=== PATIENT | male | born 1980 | race Two or more races ===

== ENCOUNTER 2022-02-05 01:30 | Inpatient (IN) | payer MEDICAID ==
[2022-02-05] VITALS (58 sets, daily range): BP systolic 65–159; BP diastolic 40–94
[~2022-02-05] VITALS: Ht 172.7 cm; Wt 84.8 kg
--- NOTE | 2022-02-05 01:40 | NUR ---
TO ER BED 3. [id number] FROM [facility] C/O DIFFUSED ABD PAIN X 2 DAYS. HEMATURIA- S/P F/C CHANGED TODAY AND N/V. PT IS ALERT AND ORIENETED. NON AMBULATORY. RR EVEN AND NONLABORED. HEMATURIA NOTED IN [facility]. CONNECTED TO MONITOR. AWAITING MD WEBBER
[2022-02-05] MEDS ORDERED: ONDANSETRON HCL/PF 4 MG/2 ML VIAL ONE (01:51)
[2022-02-05] MEDS ORDERED: MORPHINE SULFATE INJ 2 MG/ML DISP.SYRIN ONE (01:51)
[2022-02-05] MEDS ORDERED: IV NS 0.9% 1,000 ML BAG IV ONE ×2 (02:00→03:30)
[2022-02-05] MEDS ORDERED: ONDANSETRON HCL/PF 4 MG/2 ML VIAL IVP ONE (02:00)
[2022-02-05] MEDS ORDERED: MORPHINE SULFATE INJ 2 MG/ML DISP.SYRIN IV ONE (02:00)
--- NOTE | 2022-02-05 02:31 | NUR ---
MANUAL IRRIGATION TO [facility] CATH PERFORMED. FEW BLOOD CLOTS NOTED. PT TOLERATED WELL.
--- NOTE | 2022-02-05 02:32 | NUR ---
LAB AT BEDSIDE
[2022-02-05 02:50] LABS: BASOPHILS # (AUTO) 0.1 K/uL (0.0-0.2); BASOPHILS % (AUTO) 0.1 % (0.0-2.0); HEMATOCRIT 46 % (39-51); HEMOGLOBIN 14.5 g/dL (13.5-17.5); LYMPHOCYTES # (AUTO) 1.7 K/uL (0.8-4.8); LYMPHOCYTES % (AUTO) 4.8 % (20.0-44.0); MEAN CORPUSCULAR HGB CONC 32 g/dl (31.0-36.0); MEAN CORPUSCULAR VOLUME 72 fL (80-96); MONOCYTES # (AUTO) 1.8 K/uL (0.1-1.30); MONOCYTES % (AUTO) 4.9 % (2.0-12.0); NEUTROPHILS # (AUTO) 32.5 K/uL (1.8-8.9); NEUTROPHILS % (AUTO) 90.2 % (43.0-81.0); PLATELET COUNT (AUTO) 225 K/uL (150-450); RED BLOOD CELL COUNT(AUTO) 6.38 MIL/uL (4.5-6.0)
[2022-02-05 02:52] LABS: WHITE BLOOD COUNT (AUTO) 36.1 K/uL (4.3-11.0)
--- NOTE | 2022-02-05 02:52 | NUR ---
WBC 36.1
[2022-02-05 03:01] LABS: CALCIUM, SERUM 8.5 mg/dL (8.5-10.1); CREATININE 2.6 mg/dL (0.6-1.3)
[2022-02-05 03:07] LABS: ALBUMIN 3.8 g/dL (3.4-5.0); BILIRUBIN,DIRECT 0.3 mg/dL (0.0-0.2); BILIRUBIN,TOTAL 0.8 mg/dL (0.2-1.0); TOTAL PROTEIN, SERUM 6.3 g/dL (6.4-8.2)
--- NOTE | 2022-02-05 03:20 | NUR ---
POTASSIUM 6.3
[2022-02-05 03:21] LABS: POTASSIUM 6.3 mmol/L (3.5-5.1)
[2022-02-05 03:26] LABS: BAND % (MANUAL) 4 % (0.0-5.0); BASOPHILS % (MANUAL) 0 % (0.0-2.0); EOSINOPHILS % (MANUAL) 0 % (0-4); LYMPHOCYTES % (MANUAL) 7 % (16-48); MONOCYTES % (MANUAL) 5 % (0-11.0); NEUTROPHILS % (MANUAL) 84 (42-76)
[2022-02-05] MEDS ORDERED: FUROSEMIDE 20 MG/2 ML VIAL ONE (03:28)
[2022-02-05] MEDS ORDERED: SODIUM POLYSTYRENE SULFONATE 15 G/60 ML BOTTLE ONE (03:28)
[2022-02-05] MEDS ORDERED: SODIUM BICARBONATE SYR 50 MEQ/50 ML DISP.SYRIN ONE (03:29)
[2022-02-05] MEDS ORDERED: DEXTROSE 50%-WATER 50 ML DISP.SYRIN ONE (03:29)
[2022-02-05] MEDS ORDERED: INSULIN REGULAR, HUMAN 100 UNIT/ML 10 ML VIAL ONE (03:29)
[2022-02-05] MEDS ORDERED: CALCIUM CHLORIDE 1,000 MG/10 ML DISP.SYRIN ONE (03:29)
[2022-02-05] MEDS ORDERED: CALCIUM CHLORIDE 1,000 MG/10 ML DISP.SYRIN IV ONE (03:30)
[2022-02-05] MEDS ORDERED: DEXTROSE 50%-WATER 50 ML DISP.SYRIN IV ONE (03:30)
[2022-02-05] MEDS ORDERED: SODIUM POLYSTYRENE SULFONATE 15 G/60 ML BOTTLE PO ONE (03:30)
[2022-02-05] MEDS ORDERED: INSULIN REGULAR, HUMAN 100 UNIT/ML 10 ML VIAL IV ONE (03:30)
[2022-02-05] MEDS ORDERED: SODIUM BICARBONATE SYR 50 MEQ/50 ML DISP.SYRIN IV ONE (03:30)
[2022-02-05] MEDS ORDERED: ALBUTEROL FS 2.5 MG/3 ML VIAL.NEB NEB ONE (03:30)
[2022-02-05] MEDS ORDERED: FUROSEMIDE 40 MG/4 ML VIAL IV ONE (03:30)
[2022-02-05] MEDS ORDERED: ALBUTEROL FS 2.5 MG/3 ML VIAL.NEB ONE (04:00)
--- NOTE | 2022-02-05 04:17 | NUR ---
SWETHA COLLECTED AND SENT TO LAB
--- NOTE | 2022-02-05 04:52 | NUR ---
[facility] PAGED
[2022-02-05] MEDS ORDERED: LEVOFLOXACIN 750 MG /D5W 150ML PIGGYBACK IV ONE (05:00)
[2022-02-05] MEDS ORDERED: ONDANSETRON HCL/PF 4 MG/2 ML VIAL IVP PRN (05:00)
[2022-02-05] MEDS ORDERED: IV NS 0.9% 1,000 ML IV ONE (05:00)
[2022-02-05] MEDS ORDERED: BISACODYL SUPP (10 MG) 10 MG/SUPP.RECT SUPP.RECT RC ONE (05:00)
[2022-02-05] MEDS ORDERED: LEVOFLOXACIN 500 MG /D5W 100ML 500 MG in PREMIX 1 EA IV SCH (05:00)
[2022-02-05 05:13] LABS: BILIRUBIN,URINE MODERATE (NEGATIVE); COLOR,URINE RED (YELLOW); LEUKOCYTE ESTERASE ,URINE LARGE (NEGATIVE); NITRITE, URINE POSITIVE (NEGATIVE); PROTEIN,URINE >=300 mg/dl (NEGATIVE); UGLUCOSE NEGATIVE (NEGATIVE)
--- NOTE | 2022-02-05 05:15 | NUR ---
xray at bedside
[2022-02-05 05:17] LABS: BACTERIA,URINE Moderate /HPF (None Seen); RBC,URINE TOO NUMEROUS TO COUN /HPF (0-2); SQUAMOUS EPITHELIAL CELL,UR Few /HPF (None Seen); WBC,URINE 21-50 /HPF (0-3)
[2022-02-05] MEDS ORDERED: NOREPINEPHRINE 4 MG/4 ML AMPUL IV ONE (05:47)
--- NOTE | 2022-02-05 05:55 | NUR ---
LEVOPHED INITIATED AT 0.1MCG/KG/MIN PER ORDER FOR SUSTAINED HYPOTENSION
[2022-02-05] MEDS ORDERED: NA PHOS,M-B/NA PHOS,DI-BA 1 EA ENEMA RC ONE ×3 (06:00→18:30)
[2022-02-05] MEDS ORDERED: NOREPINEPHRINE 8 MG in IV NS 0.9% 242 ML IV PRN (06:00)
[2022-02-05] MEDS: SODIUM POLYSTYRENE SULFONATE 15 G/60 ML BOTTLE PO SCH ×3 (06:00→18:13)
--- NOTE | 2022-02-05 06:12 | NUR ---
PICC LINE VERBAL CONSENT OBTAINED FROM PATIENT. PT UNABLE TO SIGNED DUE TO BUE CONTRACTURES. WITNESSED BY TWO RNS.
--- NOTE | 2022-02-05 07:41 | NUR ---
SPOKE W/ PETE FROM RADIOLOGY; WILL ORDER ISOTOPE FOR NM SCAN.
[2022-02-05] MEDS: METRONIDAZOLE 500MG/ NS 100ML 100 ML IV SCH ×2 (07:47→15:26)
--- NOTE | 2022-02-05 07:47 | NUR ---
ROOM 255
--- NOTE | 2022-02-05 07:53 | NUR ---
ROOM 253 PER KE JUAREZ. PT REPORT GIVEN.
[2022-02-05] MEDS ORDERED: LEVOFLOXACIN 750 MG /D5W 150ML 750 MG in PREMIX 1 EA IV SCH (08:00)
--- NOTE | 2022-02-05 08:07 | NUR ---
PICC LINE NURSE AT BEDSIDE
[2022-02-05] MEDS ORDERED: DULO60CA45 PO (08:42)
[2022-02-05] MEDS ORDERED: GABA600T12 PO (08:42)
[2022-02-05] MEDS ORDERED: HYDR4TAB4 PO (08:42)
[2022-02-05] MEDS ORDERED: RIVA10TA PO (08:42)
[2022-02-05] MEDS ORDERED: MULT-439 PO (08:42)
[2022-02-05] MEDS ORDERED: MELA5TAB PO (08:42)
[2022-02-05] MEDS ORDERED: OXYB5SYR2 PO (08:42)
[2022-02-05] MEDS ORDERED: ALBU6.7H9 IH (08:42)
[2022-02-05] MEDS ORDERED: ZINC220T4 PO (08:42)
[2022-02-05] MEDS ORDERED: MIDO10TA PO (08:42)
[2022-02-05] MEDS ORDERED: POLY17PO4 PO (08:42)
[2022-02-05] MEDS ORDERED: FAMO20TA8 PO (08:42)
[2022-02-05] MEDS ORDERED: ASCO500C18 PO (08:42)
[2022-02-05] MEDS ORDERED: PROP20TA7 PO (08:42)
[2022-02-05] MEDS ORDERED: CHOL200013 PO (08:42)
[2022-02-05] MEDS: DOCUSATE SODIUM 250 MG CAPSULE PO SCH ×3 (09:00→17:00)
--- NOTE | 2022-02-05 09:06 | NUR ---
PT ARRIVED IN ICU TO ROOM 253. PT ALERT OX3, COOPERATIVE. SINUS TACH IN THE 140'S, MD'S AWARE. LEVOPHED INFUSING PER MD ORDERS. PT TO GO TO NUCLEAR MED WITHIN THE HOUR. PT CHECKED ON HOURLY AND PRN BY NURSING STAFF.
--- NOTE | 2022-02-05 09:10 | NUR ---
report given by Harrison at bedside Admit to ICU
--- NOTE | 2022-02-05 09:15 | NUR ---
PT TRANSFERRED TO 253 VIA [facility] ACLS PROTOCOL. WARM HANDOFF GIVEN TO KE JUAREZ ASSIGNED.
[2022-02-05 11:09] LABS: CREATININE, URINE 84.7 MG/DL (30.0-125.0)
[2022-02-05] MEDS ORDERED: POLYETHYLENE GLYCOL 3350 17 GM POWD.PACK PO PRN (11:30)
[2022-02-05] MEDS: METOCLOPRAMIDE HCL 10 MG/2 ML VIAL IV SCH ×3 (12:35→21:13)
[2022-02-05] MEDS: PANTOPRAZOLE 40 MG VIAL IV SCH (12:51)
[2022-02-05] MEDS: ACETAMINOPHEN 325 MG TABLET PO PRN ×2 (12:52→19:45)
[2022-02-05] MEDS: PHENYLEPHRINE 50 MG in IV NS 0.9% 245 ML IV PRN ×2 (12:54→22:25)
[2022-02-05] MEDS: IV NS 0.9% 1,000 ML IV PRN ×2 (12:54→19:45)
[2022-02-05] MEDS: HYDROCODONE/APAP 5/325MG TABLET PO PRN ×2 (15:26→21:29)
--- NOTE | 2022-02-05 19:30 | NUR ---
END OF SHIFT NOTE: PT WENT TO NUCLEAR MED THIS AM WITHOUT DIFFICULTY. PT HAD INITIALLY REFUSED THE FLEETS ENEMA EARLIER BUT RN WAS ABLE TO CONVINCE PT HE NEEDS THE FLEETS. FLEETS WAS GIVEN TO PATIENT WITHOUT DIFFICULTY. LEVOPHED WAS CHANGED TO EMILEE-SYNEPHRINE TODAY D/T HIGH HEART RATE. EMILEE INFUSING WITHOUT DIFFICULTY PER MD ORDERS. PT CHECKED ON HOURLY AND PRN BY NURSING STAFF.
--- NOTE | 2022-02-05 19:53 | NUR ---
RN OPENING NOTES RECEIVED CARE OF PATIENT FROM AM NURSE, PATIENT IS AWAKE, A/O X4, ABLE TO MAKE NEEDS KNOWN. REPOSITIONED PATIENT FOR COMFORT, PAIN EXPRESSES PAIN IN ABDOMEN AREA, ADMINISTERED TYLENOL PRN FOR MILD PAIN, WILL REASSESS ACCORDINGLY. PATIENT IS BREATHING ON ROOM AIR, TOLERATING WELL, NO SOB NOTED, O2 SAT 99%. PATIENT RUNNING WITH IV NS AT 100ML/HR AND EMILEE DRIP AT 1 MCG/KG/MIN. GRACE IS PLACE, DRAINING YELLOW URINE TO GRAVITY. SAFETY MEASURES IMPLEMENTED PER HOSPITAL PROTOCOLS, WILL CONTINUE TO MONITOR PATIENT.
[2022-02-05] MEDS ORDERED: MEROPENEM 500 MG in IV NS 0.9% 50 ML IV SCH (20:30)
[2022-02-05] MEDS: MEROPENEM 500 MG in IV NS 0.9% 100 ML IV SCH (20:57)
[2022-02-05] MEDS: HEPARIN SODIUM, PORCINE 5000 UNITS/1 ML VIAL SQ SCH (21:13)
[2022-02-06] VITALS (91 sets, daily range): BP systolic 83–179; BP diastolic 30–116
--- NOTE | 2022-02-06 00:05 | NUR ---
RN NOTES PATIENT EXPRESSES ABDOMINAL AND MUSCULAR PAIN 10/10, PATIENT HAS NOT HAD A BOWEL MOVEMENT, ALFONSO SALINAS PRINCIPLE INDUSTRIAL HYGIENIST MADE AWARE, ORDER IS TO ADMINISTER FLEET ENEMA ONCE RC. WILL CARRY OUT ORDERS.
[2022-02-06] MEDS ORDERED: NA PHOS,M-B/NA PHOS,DI-BA 1 EA ENEMA RC ONE (00:30)
--- NOTE | 2022-02-06 00:40 | NUR ---
RN NOTES ADMINISTERED FLEET ENEMA ORDERED, PATIENT HAD A BOWEL MOVEMENT, MODERATE AMOUNTS OF STOOL WITH MUCOID CHARACTERISTICS NOTED. PATIENT EXPRESSED SMALL RELIEF FROM ABDOMINAL PAIN. WILL CONTINUE TO MONITOR PATIENT.
[2022-02-06] MEDS: HYDROCODONE/APAP 5/325MG TABLET PO PRN ×2 (03:47→21:05)
[2022-02-06 04:29] LABS: BASOPHILS % (AUTO) 0.2 % (0.0-2.0); EOSINOPHILS % (AUTO) 0.2 % (0.0-6.0); HEMATOCRIT 30 % (39-51); HEMOGLOBIN 9.8 g/dL (13.5-17.5); LYMPHOCYTES # (AUTO) 1.5 K/uL (0.8-4.8); LYMPHOCYTES % (AUTO) 9.7 % (20.0-44.0); MEAN CORPUSCULAR HGB CONC 33 g/dl (31.0-36.0); MEAN CORPUSCULAR VOLUME 70 fL (80-96); MONOCYTES # (AUTO) 1.4 K/uL (0.1-1.30); MONOCYTES % (AUTO) 8.9 % (2.0-12.0); NEUTROPHILS # (AUTO) 12.8 K/uL (1.8-8.9); PLATELET COUNT (AUTO) 143 K/uL (150-450); WHITE BLOOD COUNT (AUTO) 15.8 K/uL (4.3-11.0)
[2022-02-06 04:44] LABS: ALBUMIN 2.7 g/dL (3.4-5.0); BILIRUBIN,TOTAL 0.8 mg/dL (0.2-1.0); CALCIUM, SERUM 7.6 mg/dL (8.5-10.1); CREATININE 1.2 mg/dL (0.6-1.3); PHOSPHORUS 3.7 mg/dL (2.5-4.9); TOTAL PROTEIN, SERUM 5.1 g/dL (6.4-8.2)
[2022-02-06 04:46] LABS: POTASSIUM 2.8 mmol/L (3.5-5.1)
[2022-02-06 04:52] LABS: THYROID STIMULATING HORMONE 0.51 uIU/mL (0.358-3.74)
--- NOTE | 2022-02-06 05:03 | NUR ---
RN NOTES CRITICAL LAB VALUE FOR POTASSIUM OF 2.8 REPORTED BY LAB. ALFONSO SALINAS PROVER MADE AWARE, ORDER IS FOR THE PATIENT TO GET A NEPHROLOGY CONSULT THIS MORNING.
[2022-02-06] MEDS: METOCLOPRAMIDE HCL 10 MG/2 ML VIAL IV SCH ×3 (05:08→21:06)
[2022-02-06] MEDS: IV NS 0.9% 1,000 ML IV PRN ×2 (06:01→19:26)
[2022-02-06] MEDS: ACETAMINOPHEN 325 MG TABLET PO PRN ×2 (06:38→19:26)
--- NOTE | 2022-02-06 06:43 | NUR ---
RN CLOSING NOTES WILL ENDORSE CARE OF PATIENT TO AM NURSE, PATIENT ASLEEP, WAKES UP INTERMITTENTLY DUE TO PAIN. PAIN MANAGED WITH ICE PACKS ON AFFECTED AREAS, REPOSITIONING, AND PRN TYLENOL/ NORCO. PATIENT RECEIVED FLEET ENEMA, 2 MUCOID BOWEL MOVEMENTS AFTER FLEET ENEMA ADMINISTRATION. PLAN OF CARE FOLLOWED. SAFETY MEASURES KEPT IN PLACE PER HOSPITAL PROTOCOLS. WILL ENDORSE CARE OF PATIENT TO AM NURSE FOR CONTINUITY OF CARE.
--- NOTE | 2022-02-06 06:58 | NUR ---
RN NOTES CONTACTED DR. BLACKBURN REGARDING ORDERS FROM ALFONSO SALINAS NP TO CONSULT WITH NEPHROLOGY ABOUT THE PATIENT'S POTASSIUM LEVEL OF 2.8. PENDING RESPONSE FROM DR. BLACKBURN.
--- NOTE | 2022-02-06 07:30 | NUR ---
OPENING NOTE: REPORT RECEIVED FROM KHANH DEMPSEY. LABS AND ORDERS REVIEWED DURING REPORT. PT IS ALERT OX3. CONTINUES TO BE ON EMILEE-SYNEPHRINE GTT PER MD ORDERS. POTASSIUM IS 2.8, DR BLACKBURN TO ORDER POTASSIUM REPLACEMENT. PT CHECKED ON HOURLY AND PRN BY NURSING STAFF.
[2022-02-06] MEDS ORDERED: HYDROMORPHONE 1 MG/1 ML DISP.SYRIN IV ONE (08:30)
[2022-02-06] MEDS: POTASSIUM CHLORIDE 10 MEQ/50 ML PREMIXED IVPB FOR PERIPHERAL LINE IV SCH ×2 (08:43→10:24)
[2022-02-06] MEDS: MEROPENEM 500 MG in IV NS 0.9% 100 ML IV SCH ×2 (09:20→21:06)
[2022-02-06] MEDS: PANTOPRAZOLE 40 MG VIAL IV SCH (09:21)
[2022-02-06] MEDS: DOCUSATE SODIUM 250 MG CAPSULE PO SCH ×2 (09:21→17:16)
[2022-02-06] MEDS: NICOTINE PATCH (21MG) 21 MG PATCH.TD24 TD SCH (09:27)
[2022-02-06] MEDS: HEPARIN SODIUM, PORCINE 5000 UNITS/1 ML VIAL SQ SCH (09:29)
[2022-02-06] MEDS: IV NS 0.9% 250 ML IV PRN (09:35)
[2022-02-06 11:51] LABS: IRON, SERUM 8 ug/dl (50-175); TOTAL IRON BINDING CAPACITY 191 ug/dl (250-450)
[2022-02-06 12:09] LABS: FERRITIN 128 ng/mL (8-388)
[2022-02-06] MEDS: HYDROMORPHONE 1 MG/1 ML DISP.SYRIN IV PRN ×3 (13:18→21:43)
[2022-02-06] MEDS ORDERED: POTASSIUM CHLORIDE 20 MEQ TAB.PRT.SR PO ONE (15:30)
[2022-02-06] MEDS: GABAPENTIN 300 MG CAPSULE PO SCH (17:16)
[2022-02-06] MEDS: RIVAROXABAN 10 MG TABLET PO SCH (17:17)
[2022-02-06] MEDS: PHENYLEPHRINE 50 MG in IV NS 0.9% 245 ML IV PRN (17:23)
--- NOTE | 2022-02-06 18:33 | NUR ---
END OF SHIFT NOTE: PT HAD LARGE FORM TO HARD BM. PT CHANGED TO CARDIAC DIET. POTASSIUM REPLACED PER MD ORDERS. EMILEE-SYNEPHRINE INFUSING PER MD ORDERS. PT CHECKED ON HOURLY AND PRN BY NURSING STAFF.
[2022-02-06] MEDS: MIDODRINE HCL (5MG) 5 MG TABLET PO SCH (21:06)
--- NOTE | 2022-02-06 22:07 | NUR ---
RN NOTE RECEIVED PATIENT IN BED, AAO X 4, IN NO ACUTE DISTRESS, RESPIRATION UNLABORED, SATURATION AT 95% ON ROOM AIR, ZHANNA PICC LINE IN PLACE, ALL PORTS FLUSHING WELL, NO SIGN OF INFECTION OR BLEEDING, WITH NS INFUSING AT 100 ML/HR, AND EMILEE AT 0.4 MCG/KG/MIN. GRACE CATHETER DRAINING TO A CLOUDY, YELLOW OUTPUT. SAFETY MEASURES IN PLACE, BED IS LOCKED AND AT LOWEST POSITION, HEAD OF BED ELEVATED, CALL LIGHT WITHIN REACH OF PATIENT. WILL CONT TO MONITOR AND REASSESS.
[2022-02-07] VITALS (99 sets, daily range): BP systolic 75–152; BP diastolic 33–105
[2022-02-07] MEDS: HYDROMORPHONE 1 MG/1 ML DISP.SYRIN IV PRN ×5 (02:21→21:48)
[2022-02-07 03:50] LABS: BASOPHILS % (AUTO) 0.4 % (0.0-2.0); EOSINOPHILS % (AUTO) 1.5 % (0.0-6.0); HEMATOCRIT 27 % (39-51); HEMOGLOBIN 8.7 g/dL (13.5-17.5); LYMPHOCYTES # (AUTO) 1.3 K/uL (0.8-4.8); LYMPHOCYTES % (AUTO) 14.5 % (20.0-44.0); MEAN CORPUSCULAR HGB CONC 33 g/dl (31.0-36.0); MEAN CORPUSCULAR VOLUME 71 fL (80-96); NEUTROPHILS # (AUTO) 6.4 K/uL (1.8-8.9); NEUTROPHILS % (AUTO) 72.6 % (43.0-81.0); PLATELET COUNT (AUTO) 117 K/uL (150-450); RED BLOOD CELL COUNT(AUTO) 3.75 MIL/uL (4.5-6.0); WHITE BLOOD COUNT (AUTO) 8.8 K/uL (4.3-11.0)
[2022-02-07] MEDS: ACETAMINOPHEN 325 MG TABLET PO PRN ×2 (03:58→23:14)
[2022-02-07 04:04] LABS: CALCIUM, SERUM 7.2 mg/dL (8.5-10.1); CREATININE 0.9 mg/dL (0.6-1.3); MAGNESIUM 1.8 mg/dL (1.8-2.4)
[2022-02-07] MEDS: METOCLOPRAMIDE HCL 10 MG/2 ML VIAL IV SCH ×3 (04:04→21:22)
[2022-02-07 04:15] LABS: POTASSIUM 2.8 mmol/L (3.5-5.1)
[2022-02-07] MEDS: IV NS 0.9% 1,000 ML IV PRN ×2 (04:46→16:01)
--- NOTE | 2022-02-07 06:47 | NUR ---
RN NOTED K LEVEL FROM AM LABS RESULTED 2.8. ELECTRICIAN MANAGER DR BLACKBURN WAS MADE AWARE, AWAITING TO HEAR BACK FROM MD. WILL ENDORSE TO AM SHIFT RN TO FOLLOW UP
--- NOTE | 2022-02-07 08:00 | NUR ---
RN NOTES RECEIVED PATIENT IN THE BED RESTING, A/A/O X4, PATIENT ON ROOM AIR 02-98%, NO SOB NOTES. HR -101 ON BEDSIDE MONITOR. WAS COMPLAINING OF PAIN 2/10 PER PAIN SCALE, BUT REFUSED PAIN MEDICATION AT THIS TIME. PATIENT ON NORSYNEPHRINE 0.2 MCG/KG/MIN, AND NS @100 ML/HR INTACT ON ZHANNA PICC LINE. PATIENT ABDOMEN DISTENDED, T-99.2F, EDEMA BILATERAL LOWER EXTREMITIES. ASSIST PATIENT FOR BREAKFAST TOLERATED WELL, CALL LIGHT WITHIN TO REACH. WILL FOLLOW UP.
[2022-02-07 08:06] LABS: IMMUNOGLOBULIN A, SERUM 15 mg/dL (90-386); IMMUNOGLOBULIN G, SERUM 130 mg/dL (603-1613); IMMUNOGLOBULIN M, SERUM 8 mg/dL (20-172)
[2022-02-07] MEDS: NICOTINE PATCH (21MG) 21 MG PATCH.TD24 TD SCH ×2 (08:22→08:46)
[2022-02-07] MEDS: MEROPENEM 500 MG in IV NS 0.9% 100 ML IV SCH ×2 (08:23→21:22)
[2022-02-07] MEDS: DOCUSATE SODIUM 250 MG CAPSULE PO SCH ×2 (08:26→16:26)
[2022-02-07] MEDS: CHOLECALCIFEROL 1,000 UNIT TABLET (VIT D3) PO SCH (08:27)
[2022-02-07] MEDS: MULTIVIT W/MINERALS 1 TAB TABLET PO SCH (08:27)
[2022-02-07] MEDS: ASCORBIC ACID 500 MG TABLET PO SCH (08:27)
[2022-02-07] MEDS: DULOXETINE HCL 30 MG CAPSULE.DR PO SCH (08:27)
[2022-02-07] MEDS: GABAPENTIN 300 MG CAPSULE PO SCH ×2 (08:27→16:24)
[2022-02-07] MEDS: OXYBUTYNIN CHLORIDE 5 MG TABLET PO SCH (08:27)
[2022-02-07] MEDS: ZINC SULFATE 220 MG CAPSULE PO SCH (08:27)
[2022-02-07] MEDS: PANTOPRAZOLE 40 MG TABLET.DR PO SCH (08:27)
[2022-02-07] MEDS ORDERED: POTASSIUM CHLORIDE 20 MEQ TAB.PRT.SR PO SCH (10:00)
[2022-02-07] MEDS ORDERED: Magnesium 1GM/D5W 100ML PREMIX PIGGYBACK IV ONE (10:00)
--- NOTE | 2022-02-07 10:18 | NUR ---
RN NOTES ADMINISTERED [id number], AND MG1G AT THIS TIME PER DR OLIVARES'S ORDER, ALSO TITRATED NEOSYNEPHRINE 0.07 MCG/KG/MIN, BP 137/ 75, P-100. PATIENT STABLE RESTING IN THE BED. REFUSED PAIN, GRACE DRAINING VIA GRAVITY TEA COLOR. PATIENT QUADRIPLEGIC, BUT ABLE TO US RIGHT HAND MINIMALLY. ASSIST TURN AND REPOSTION Q 2 HR, CALL LIGHT WITHIN TO REACH. WILL FOLLOW UP.
[2022-02-07] MEDS ORDERED: POTASSIUM CHLORIDE 20 MEQ TAB.PRT.SR PO ONE (10:30)
[2022-02-07] MEDS ORDERED: Magnesium 1GM/D5W 100ML PREMIX 100 ML IV SCH (10:30)
[2022-02-07] MEDS ORDERED: ALBUTEROL SULFATE 8 GM HFA.AER.AD IH PRN (11:00)
[2022-02-07] MEDS ORDERED: ALBUTEROL FS 2.5 MG/0.5 ML VIAL.NEB NEB PRN (11:30)
--- NOTE | 2022-02-07 13:40 | NUR ---
RN NOTES ADMINISTERED DILAUDID 0.5 MG/ML IV PUSH FOR GENERALIZED PAIN PER PATIENT REQUEST 01/13, BP100/60, P-107. WILL FOLLOW UP.
[2022-02-07 15:12] LABS: THYROID STIMULATING HORMONE 1.34 uIU/mL (0.358-3.74)
--- NOTE | 2022-02-07 15:15 | NUR ---
rn notes collected occult blood of stool specimen, dressing changed on sacral area, assist turn and reposition q 2 hr.
[2022-02-07 16:07] LABS: BASOPHILS % (AUTO) 0.3 % (0.0-2.0); EOSINOPHILS % (AUTO) 1.3 % (0.0-6.0); HEMATOCRIT 25 % (39-51); HEMOGLOBIN 7.9 g/dL (13.5-17.5); LYMPHOCYTES # (AUTO) 1.2 K/uL (0.8-4.8); LYMPHOCYTES % (AUTO) 15.6 % (20.0-44.0); MEAN CORPUSCULAR HGB CONC 32 g/dl (31.0-36.0); MEAN CORPUSCULAR VOLUME 70 fL (80-96); MONOCYTES # (AUTO) 0.7 K/uL (0.1-1.30); MONOCYTES % (AUTO) 8.8 % (2.0-12.0); NEUTROPHILS # (AUTO) 5.8 K/uL (1.8-8.9); PLATELET COUNT (AUTO) 118 K/uL (150-450); RED BLOOD CELL COUNT(AUTO) 3.49 MIL/uL (4.5-6.0); WHITE BLOOD COUNT (AUTO) 7.8 K/uL (4.3-11.0)
[2022-02-07] MEDS: HYDROCODONE/APAP 5/325MG TABLET PO PRN (16:25)
[2022-02-07 16:52] LABS: OCCULT BLOOD STOOL POSITIVE (NEGATIVE)
[2022-02-07 16:57] LABS: BAND % (MANUAL) 3 % (0.0-5.0); LYMPHOCYTES % (MANUAL) 11 % (16-48); MONOCYTES % (MANUAL) 2 % (0-11.0); NEUTROPHILS % (MANUAL) 84 (42-76)
[2022-02-07] MEDS: RIVAROXABAN 10 MG TABLET PO SCH (17:00)
--- NOTE | 2022-02-07 17:25 | NUR ---
rn notes held Xaralto at this time, patient positive for stool occult blood, and decreased hgl 7.(, oncologist OLIMPIA Dasilva, V aware of.
--- NOTE | 2022-02-07 17:44 | NUR ---
RN NOTES ADMINISTERED Dilaudid 0.5 mg/ml iv push for generalized pain 02/13 per patient request. narco was given not effective, bp- 108/70, p-109, r-17. held norsynephrine infusion.
[2022-02-07] MEDS: IV NS 0.9% 250 ML IV PRN (18:36)
--- NOTE | 2022-02-07 18:46 | NUR ---
RN NOTES RESUMED NEOSYNEPHRINE 0.01 MCG/KG/MIN AT THIS TIME, BECAUSE OF BP 88/39, P-104, R-15. PM CARE DONE, ASSIST EATING, ASSIST TURN AND REPOSTION Q 2 HR. URINE OUTPUT WAS 3100ML, AND BP X1. CALL LIGHT WITHIN TO REACH. ENDORSED ONCOMING NURSE KULWINDER.
[2022-02-07] MEDS: MIDODRINE HCL (5MG) 5 MG TABLET PO SCH (21:22)
[2022-02-08] VITALS (36 sets, daily range): BP systolic 111–172; BP diastolic 55–107
[2022-02-08] MEDS: HYDROMORPHONE 1 MG/1 ML DISP.SYRIN IV PRN ×4 (01:56→20:18)
[2022-02-08] MEDS: IV NS 0.9% 1,000 ML IV PRN ×2 (02:26→19:43)
[2022-02-08 04:46] LABS: BASOPHILS % (AUTO) 0.4 % (0.0-2.0); EOSINOPHILS % (AUTO) 1.8 % (0.0-6.0); HEMATOCRIT 25 % (39-51); HEMOGLOBIN 8.2 g/dL (13.5-17.5); LYMPHOCYTES # (AUTO) 1.3 K/uL (0.8-4.8); LYMPHOCYTES % (AUTO) 20.9 % (20.0-44.0); MEAN CORPUSCULAR HGB CONC 32 g/dl (31.0-36.0); MEAN CORPUSCULAR VOLUME 71 fL (80-96); MONOCYTES # (AUTO) 0.6 K/uL (0.1-1.30); MONOCYTES % (AUTO) 9.1 % (2.0-12.0); NEUTROPHILS # (AUTO) 4.1 K/uL (1.8-8.9); NEUTROPHILS % (AUTO) 67.8 % (43.0-81.0); PLATELET COUNT (AUTO) 114 K/uL (150-450); RED BLOOD CELL COUNT(AUTO) 3.59 MIL/uL (4.5-6.0); WHITE BLOOD COUNT (AUTO) 6.1 K/uL (4.3-11.0)
[2022-02-08] MEDS: METOCLOPRAMIDE HCL 10 MG/2 ML VIAL IV SCH ×3 (05:11→21:36)
[2022-02-08 05:34] LABS: ALBUMIN 2.4 g/dL (3.4-5.0); BILIRUBIN,TOTAL 0.6 mg/dL (0.2-1.0); CALCIUM, SERUM 7.9 mg/dL (8.5-10.1); CREATININE 0.7 mg/dL (0.6-1.3); MAGNESIUM 1.7 mg/dL (1.8-2.4); TOTAL PROTEIN, SERUM 5.2 g/dL (6.4-8.2)
[2022-02-08 05:40] LABS: POTASSIUM 2.8 mmol/L (3.5-5.1)
--- NOTE | 2022-02-08 06:24 | NUR ---
ICU/RN: POTASSIUM 2.8 RELAYED TO ALFONSO SALINAS ACNP. NEW ORDER RECEIVED.
[2022-02-08] MEDS: POTASSIUM CL. PREMIX PERIPHER. 50 ML IV SCH ×5 (06:40→10:49)
--- NOTE | 2022-02-08 07:40 | NUR ---
ICU/RN PT IS RESTING.ON ROOM AIR SAT O2-98%.V/S STABLE,AFEBRILE.NO PAIN REPORTED AT THIS TIME.PT IS BEDBOUND.F/C IN PLACE DRAINING WITH YELLOW URINE.SACRAL WOUND COVERED WITH DRESSING.LABS REVIEW.K-2.8. AWARE.REPLACING WITH 50 MEQ IV.REPOSITION FOR COMFORT.
[2022-02-08] MEDS: MEROPENEM 500 MG in IV NS 0.9% 100 ML IV SCH ×2 (07:50→20:18)
[2022-02-08] MEDS: PANTOPRAZOLE 40 MG TABLET.DR PO SCH (07:50)
[2022-02-08] MEDS: GABAPENTIN 300 MG CAPSULE PO SCH ×2 (08:19→17:16)
[2022-02-08] MEDS: DULOXETINE HCL 30 MG CAPSULE.DR PO SCH (08:19)
[2022-02-08] MEDS: DOCUSATE SODIUM 250 MG CAPSULE PO SCH ×2 (08:20→17:16)
[2022-02-08] MEDS: OXYBUTYNIN CHLORIDE 5 MG TABLET PO SCH (08:20)
[2022-02-08] MEDS: MULTIVIT W/MINERALS 1 TAB TABLET PO SCH (08:20)
[2022-02-08] MEDS: ZINC SULFATE 220 MG CAPSULE PO SCH (08:20)
[2022-02-08] MEDS: ASCORBIC ACID 500 MG TABLET PO SCH (08:20)
[2022-02-08] MEDS: NICOTINE PATCH (21MG) 21 MG PATCH.TD24 TD SCH (08:20)
[2022-02-08] MEDS: CHOLECALCIFEROL 1,000 UNIT TABLET (VIT D3) PO SCH (08:20)
[2022-02-08] MEDS ORDERED: SOD FERRIC GLUC 125 MG in IV NS 0.9% 100 ML IV SCH (09:00)
--- NOTE | 2022-02-08 09:00 | NUR ---
ICU/RN DUE MEDS ARE GIVEN ORDERED.PT EATS 75% FROM HIS MEAL TRAY.TOTAL ASSISSTANCE.
[2022-02-08] MEDS ORDERED: MAGNESIUM OXIDE 400 MG TABLET PO ONE (10:00)
[2022-02-08] MEDS ORDERED: POTASSIUM CHLORIDE 20 MEQ TAB.PRT.SR PO SCH (10:00)
--- NOTE | 2022-02-08 11:00 | NUR ---
ICU/RN PT TRANSFER TO TELE UNIT .V/S STABLE .AFEBRILE. REPORT GIVEN TO GARRISON/KE.
--- NOTE | 2022-02-08 11:30 | NUR ---
PATIENT TRANSFER FROM ICU TO [facility] PATIENT IS A/O X3-4. RECEIVED REPORT FROM ICU NURSE ARTURO. PT IS RESTING.ON ROOM AIR SAT O2-99%.V/S STABLE,AFEBRILE. PAIN REPORTED AT 1145 PAIN MEDICATION ADMINISTERED. PT IS BEDBOUND.F/C IN PLACE DRAINING WITH YELLOW URINE. SACRAL WOUND COVERED WITH DRESSING. LABS REVIEW.K-2.8. 3 BAG OD [OTASSIUM 50 ML WERE ADMINISTERED IN ICU AND THE REST 2 BAGS IN [facility]. BES AT LOWEST POSITION, CALL LIGHT WITHIN REACH, BED ALARM ON. AND WILL CONTINUE THE CARE FOR THE SHIFT.
--- NOTE | 2022-02-08 11:30 | NUR ---
RN NOTE AT 1130 PER PATIENT'S REQUEST PAIN 8/10 DILAUDID INJECTION IV Q4 HRS PRN MEDICATION ADMINISTERED. NO S/S OF RESPIRATORY DISTRESS NOTED.
[2022-02-08] MEDS: SOD FERRIC GLUC 125 MG in IV NS 0.9% 100 ML IV SCH (13:11)
--- NOTE | 2022-02-08 15:15 | NUR ---
RN NOTE PATIENT REQUESTED ANOTHER DOSE OF DILAUDID INJECTION, I SUGGESTED TO GET NORCO TABLET INSTEAD AND PATIENT ACCEPT IT AND IT WORKED WELL. PATIENT SATISFIED DURING REASSESSMENT.
[2022-02-08] MEDS: HYDROCODONE/APAP 5/325MG TABLET PO PRN (15:38)
[2022-02-08 18:33] LABS: D-DIMER 0.86 mg/L(FEU (0.17-0.50)
--- NOTE | 2022-02-08 18:45 | NUR ---
RN CLOSING NOTES PATIENT SLEEPING IN THE BED RESTING, A/A/O X4, PATIENT ON ROOM AIR 02-100%, NO SOB NOTES. HR -101 ON BEDSIDE MONITOR. PATIENT ON NORSYNEPHRINE 0.2 MCG/KG/MIN, AND NS @100 ML/HR INTACT ON ZHANNA PICC LINE. PATIENT ABDOMEN DISTENDED, T-99.1 F, EDEMA BILATERAL LOWER EXTREMITIES. ASSIST PATIENT FOR FEEDING ALL MEALS AND LIQUIDS, CALL LIGHT WITHIN TO REACH. WILL INDORSE THE PATIENT TO [facility] CONSUMER SALES REPRESENTATIVE NURSE.
--- NOTE | 2022-02-08 19:30 | NUR ---
RN OPENING NOTES RECEIVED CARE OF PATIENT FROM AM NURSE, PATIENT IS AWAKE, A/O X4, ABLE TO MAKE NEEDS KNOWN. REPOSITIONED PATIENT FOR COMFORT. PATIENT IS BREATHING ON ROOM AIR, TOLERATING WELL, NO SOB NOTED. GRACE IS PLACE, DRAINING YELLOW URINE TO GRAVITY. SAFETY MEASURES IMPLEMENTED PER HOSPITAL PROTOCOLS, WILL CONTINUE TO MONITOR PATIENT.
[2022-02-08] MEDS: HEPARIN SODIUM, PORCINE 5000 UNITS/1 ML VIAL SQ SCH (21:36)
[2022-02-08] MEDS: MIDODRINE HCL (5MG) 5 MG TABLET PO SCH (21:37)
[2022-02-09] VITALS: BP 141/88
[2022-02-09] MEDS: HYDROMORPHONE 1 MG/1 ML DISP.SYRIN IV PRN ×5 (01:04→19:50)
[2022-02-09 02:06] LABS: IMMUNOGLOBULIN A, SERUM 13 mg/dL (90-386); IMMUNOGLOBULIN G, SERUM 115 mg/dL (603-1613); IMMUNOGLOBULIN M, SERUM 6 mg/dL (20-172)
[2022-02-09 04:00] VITALS: BP 143/90
[2022-02-09] MEDS: METOCLOPRAMIDE HCL 10 MG/2 ML VIAL IV SCH ×3 (06:07→21:22)
[2022-02-09] MEDS: IV NS 0.9% 1,000 ML IV PRN ×2 (07:07→17:02)
[2022-02-09 07:24] LABS: BASOPHILS % (AUTO) 0.6 % (0.0-2.0); EOSINOPHILS % (AUTO) 1.9 % (0.0-6.0); HEMATOCRIT 26 % (39-51); HEMOGLOBIN 8.5 g/dL (13.5-17.5); LYMPHOCYTES # (AUTO) 1.5 K/uL (0.8-4.8); LYMPHOCYTES % (AUTO) 27.4 % (20.0-44.0); MEAN CORPUSCULAR HGB CONC 33 g/dl (31.0-36.0); MEAN CORPUSCULAR VOLUME 70 fL (80-96); MONOCYTES # (AUTO) 0.6 K/uL (0.1-1.30); MONOCYTES % (AUTO) 10.3 % (2.0-12.0); NEUTROPHILS # (AUTO) 3.2 K/uL (1.8-8.9); NEUTROPHILS % (AUTO) 59.8 % (43.0-81.0); PLATELET COUNT (AUTO) 141 K/uL (150-450); RED BLOOD CELL COUNT(AUTO) 3.67 MIL/uL (4.5-6.0); WHITE BLOOD COUNT (AUTO) 5.4 K/uL (4.3-11.0)
--- NOTE | 2022-02-09 07:30 | NUR ---
RN OPENING NOTES RECEIVED PATIENT AWAKE, ALERT/ORIENTED X4, ABLE TO MAKE NEEDS KNOWN. PATIENT IS BREATHING ON ROOM AIR, TOLERATING WELL, NO SOB OR ANY RESPIRATORY DISTRESS NOTED AT THE TIME. IV ACCESS ON RUE PICC LINE WITH NS INFUSING AT 100ML/HR. NO SIGNS OF INFILTRATION NOTED. GRACE IS PLACE, DRAINING YELLOW URINE TO GRAVITY. SAFETY MEASURES IMPLEMENTED PER HOSPITAL PROTOCOLS, HOB ELEVATED, BED LOCKED IN LOWEST POSITION WITH SIDE RAILS UP X 2. CALL LIGHT WITHIN REACH. WILL CONTINUE TO MONITOR THROUGHOUT SHIFT.
[2022-02-09 07:55] LABS: ALBUMIN 2.6 g/dL (3.4-5.0); BILIRUBIN,TOTAL 0.6 mg/dL (0.2-1.0); CALCIUM, SERUM 8.3 mg/dL (8.5-10.1); CREATININE 0.6 mg/dL (0.6-1.3); MAGNESIUM 1.7 mg/dL (1.8-2.4); TOTAL PROTEIN, SERUM 5.6 g/dL (6.4-8.2)
[2022-02-09 07:58] LABS: POTASSIUM 2.8 mmol/L (3.5-5.1)
[2022-02-09 08:00] VITALS: BP 156/96
[2022-02-09] MEDS: NICOTINE PATCH (21MG) 21 MG PATCH.TD24 TD SCH (08:25)
[2022-02-09] MEDS: DULOXETINE HCL 30 MG CAPSULE.DR PO SCH (08:26)
[2022-02-09] MEDS: PANTOPRAZOLE 40 MG TABLET.DR PO SCH (08:26)
[2022-02-09] MEDS: DOCUSATE SODIUM 250 MG CAPSULE PO SCH ×2 (08:26→16:37)
[2022-02-09] MEDS: MULTIVIT W/MINERALS 1 TAB TABLET PO SCH (08:26)
[2022-02-09] MEDS: ZINC SULFATE 220 MG CAPSULE PO SCH (08:26)
[2022-02-09] MEDS: MEROPENEM 500 MG in IV NS 0.9% 100 ML IV SCH ×2 (08:27→21:22)
[2022-02-09] MEDS: OXYBUTYNIN CHLORIDE 5 MG TABLET PO SCH (08:27)
[2022-02-09] MEDS: ASCORBIC ACID 500 MG TABLET PO SCH (08:27)
[2022-02-09] MEDS: CHOLECALCIFEROL 1,000 UNIT TABLET (VIT D3) PO SCH (08:27)
[2022-02-09] MEDS: GABAPENTIN 300 MG CAPSULE PO SCH ×2 (08:27→16:37)
[2022-02-09] MEDS: HEPARIN SODIUM, PORCINE 5000 UNITS/1 ML VIAL SQ SCH ×2 (08:29→21:23)
[2022-02-09 09:04] LABS: D-DIMER 1.14 mg/L(FEU (0.17-0.50)
--- NOTE | 2022-02-09 09:52 | NUR ---
WOUND CARE CONSULT: PT PRESENTS WITH SACRAL STAGE 4 PRESSURE ULCER, BILATERAL LOWER BUTTOCKS SCARS, SKIN CONDITION TO LEFT THIGH AND SWELLING/REDNESS TO LEFT ARM, PRESENT ON ADMISSION. DR JOHNIE HOLGUIN CALLED FOR SURGICAL CONSULT. RECOMMENDATIONS MADE FOR SKIN PROTECTION AND WOUND CARE. DISCUSSED WITH NURSING STAFF. FIRST STEP LOW AIRLOSS MATTRESS ORDERED. MD IN AGREEMENT WITH PLAN OF CARE.
[2022-02-09] MEDS ORDERED: MAGNESIUM OXIDE 400 MG TABLET PO ONE (10:00)
[2022-02-09] MEDS ORDERED: POTASSIUM CHLORIDE 20 MEQ TAB.PRT.SR PO SCH (10:00)
[2022-02-09] MEDS: Z GUARD REMEDY 4 OZ OINT TP SCH (11:32)
[2022-02-09] MEDS: DAKINS QUARTER STRENGTH (0.125%) 480 ML BOTTLE TOP SCH (11:32)
[2022-02-09 12:00] VITALS: BP 144/90
[2022-02-09 13:07] LABS: *SPE A/G RATIO 1.2 (0.7-1.7); *SPE ALPHA-1-GLOBULIN 0.4 g/dL (0.0-0.4); *SPE ALPHA-2-GLOBULIN 0.6 g/dL (0.4-1.0); *SPE BETA GLOBULIN 0.5 g/dL (0.7-1.3); *SPE M-SPIKE Not Observed g/dL (Not Observed)
[2022-02-09] MEDS: SOD FERRIC GLUC 125 MG in IV NS 0.9% 100 ML IV SCH (15:26)
[2022-02-09 16:00] VITALS: BP 167/103
--- NOTE | 2022-02-09 18:57 | NUR ---
RN CLOSING NOTES NO SIGNIFICANT CHANGES ON PATIENT CONDITION THROUGHOUT SHIFT. PATIENT SLEEPING AROUSES EASILY, ALERT/ORIENTED X4. PATIENT IS BREATHING ON ROOM AIR, TOLERATING WELL, NO SOB OR ANY RESPIRATORY DISTRESS NOTED AT THE TIME. IV ACCESS ON RUE PICC LINE WITH NS INFUSING AT 100ML/HR. NO SIGNS OF INFILTRATION NOTED. ALL DUE MEDS GIVEN ORDERED. KEPT PATIENT CLEAN DRY AND COMFORTABLE. WOUND CARE RENDERED, TOLERATED WELL. SAFETY MEASURES IMPLEMENTED PER HOSPITAL PROTOCOLS, HOB ELEVATED, BED LOCKED IN LOWEST POSITION WITH SIDE RAILS UP X 2. CALL LIGHT WITHIN REACH. WILL ENDORSE TO ORACLE [employer]BIEE DEVELOPER NURSE FOR CONTINUITY OF CARE.
--- NOTE | 2022-02-09 19:30 | NUR ---
RECEIVED PATIENT AWAKE, A/OX4. PATIENT IS BREATHING ON ROOM AIR, TOLERATING WELL, NO SOB OR ANY RESPIRATORY DISTRESS NOTED AT THE TIME. IV ACCESS ON ZHANNA PICC LINE WITH NS INFUSING AT 100ML/HR. NO SIGNS OF INFILTRATION NOTED. SAFETY MEASURES IMPLEMENTED PER HOSPITAL PROTOCOLS, HOB ELEVATED, BED LOCKED IN LOWEST POSITION WITH SIDE RAILS UP X 2. CALL LIGHT WITHIN REACH. WILL CONTINUE PLAN OF CARE.
[2022-02-09 20:00] VITALS: BP 157/88
[2022-02-09] MEDS: HYDROCODONE/APAP 5/325MG TABLET PO PRN (22:05)
[2022-02-09] MEDS: ACETAMINOPHEN 325 MG TABLET PO PRN (23:14)
[2022-02-09] MEDS: MIDODRINE HCL (5MG) 5 MG TABLET PO SCH (23:22)
[2022-02-10] VITALS: BP 101/53
[2022-02-10] MEDS: HYDROMORPHONE 1 MG/1 ML DISP.SYRIN IV PRN ×5 (00:46→19:56)
[2022-02-10] MEDS: IV NS 0.9% 1,000 ML IV PRN ×2 (03:34→21:39)
[2022-02-10 04:00] VITALS: BP 162/86
[2022-02-10] MEDS: METOCLOPRAMIDE HCL 10 MG/2 ML VIAL IV SCH ×3 (05:04→20:32)
[2022-02-10] MEDS: HYDROCODONE/APAP 5/325MG TABLET PO PRN (06:47)
--- NOTE | 2022-02-10 06:49 | NUR ---
PATIENT INTERMITTENTLY AWAKE, A/OX4. PATIENT IS BREATHING ON ROOM AIR, TOLERATING WELL, NO SOB OR ANY RESPIRATORY DISTRESS NOTED AT THE TIME. IV ACCESS ON ZHANNA PICC LINE WITH NS INFUSING AT 100ML/HR. NO SIGNS OF INFILTRATION NOTED. ALL DUE MEDS GIVEN. PRN MEDS GIVEN NEEDED. SAFETY MEASURES IMPLEMENTED PER HOSPITAL PROTOCOLS, HOB ELEVATED, BED LOCKED IN LOWEST POSITION WITH SIDE RAILS UP X 2. CALL LIGHT WITHIN REACH. WILL ENDORSE TO NEXT NURSE ON DUTY FOR CONTINUITY OF CARE.
--- NOTE | 2022-02-10 07:00 | NUR ---
PROCESSING TECHNICIAN opening note patient is alert and oriented x4. patient is on room air tolerating at 97%. patient is on tele monitor currently sinus rhythm/sinus tachycardia. no signs of pain or discomfort. patient is quadriplegic. patient has right upper arm picc line. picc line patent and intact. patient has Macedo catheter. yellow color draining to gravity. all safety measures in place. call light with reach. bed locked at lowest position. side rails up x2.
[2022-02-10 07:43] LABS: BASOPHILS % (AUTO) 0.6 % (0.0-2.0); EOSINOPHILS % (AUTO) 2.9 % (0.0-6.0); HEMATOCRIT 23 % (39-51); HEMOGLOBIN 7.3 g/dL (13.5-17.5); LYMPHOCYTES # (AUTO) 1.2 K/uL (0.8-4.8); LYMPHOCYTES % (AUTO) 24.3 % (20.0-44.0); MEAN CORPUSCULAR HGB CONC 32 g/dl (31.0-36.0); MEAN CORPUSCULAR VOLUME 71 fL (80-96); MONOCYTES # (AUTO) 0.5 K/uL (0.1-1.30); MONOCYTES % (AUTO) 10.3 % (2.0-12.0); NEUTROPHILS # (AUTO) 3.1 K/uL (1.8-8.9); NEUTROPHILS % (AUTO) 61.9 % (43.0-81.0); PLATELET COUNT (AUTO) 130 K/uL (150-450); RED BLOOD CELL COUNT(AUTO) 3.24 MIL/uL (4.5-6.0); WHITE BLOOD COUNT (AUTO) 5.1 K/uL (4.3-11.0)
[2022-02-10 08:00] VITALS: BP 172/62
--- NOTE | 2022-02-10 08:04 | NUR ---
television repair teacher note notified dr. flores that patient is quadreplegic and arms are contractured. and asked if it was ok to take blood pressure on his leg. dr. flores said it was okay
[2022-02-10 08:19] LABS: CALCIUM, SERUM 6.9 mg/dL (8.5-10.1); CREATININE 0.4 mg/dL (0.6-1.3); MAGNESIUM 1.4 mg/dL (1.8-2.4); PHOSPHORUS 2.9 mg/dL (2.5-4.9)
--- NOTE | 2022-02-10 08:51 | NUR ---
notified dr. flores that patient bp is 172/67 dr flores ordered 10 mg IV q6Hr PRN sbp > 170
[2022-02-10 08:58] LABS: POTASSIUM 2.6 mmol/L (3.5-5.1)
--- NOTE | 2022-02-10 08:59 | NUR ---
notified dr. flores that patient potassium is 2.6, calcuim 7 and magnesium 1.4 ordered electrolyte replacements per pharmacy protocol
[2022-02-10] MEDS: NICOTINE PATCH (21MG) 21 MG PATCH.TD24 TD SCH (09:00)
[2022-02-10] MEDS: DOCUSATE SODIUM 250 MG CAPSULE PO SCH ×2 (09:00→16:29)
[2022-02-10] MEDS: PANTOPRAZOLE 40 MG TABLET.DR PO SCH (09:07)
[2022-02-10] MEDS: MEROPENEM 500 MG in IV NS 0.9% 100 ML IV SCH ×2 (09:07→20:32)
[2022-02-10] MEDS: DULOXETINE HCL 30 MG CAPSULE.DR PO SCH (09:07)
[2022-02-10] MEDS: GABAPENTIN 300 MG CAPSULE PO SCH ×2 (09:08→16:28)
[2022-02-10] MEDS: MULTIVIT W/MINERALS 1 TAB TABLET PO SCH (09:08)
[2022-02-10] MEDS: CHOLECALCIFEROL 1,000 UNIT TABLET (VIT D3) PO SCH (09:08)
[2022-02-10] MEDS: OXYBUTYNIN CHLORIDE 5 MG TABLET PO SCH (09:08)
[2022-02-10] MEDS: ASCORBIC ACID 500 MG TABLET PO SCH (09:08)
[2022-02-10] MEDS: ZINC SULFATE 220 MG CAPSULE PO SCH (09:08)
[2022-02-10] MEDS: HEPARIN SODIUM, PORCINE 5000 UNITS/1 ML VIAL SQ SCH ×2 (09:51→20:39)
[2022-02-10 09:57] LABS: BASOPHILS % (MANUAL) 0 % (0.0-2.0); EOSINOPHILS % (MANUAL) 2 % (0-4); LYMPHOCYTES % (MANUAL) 25 % (16-48); MONOCYTES % (MANUAL) 8 % (0-11.0); NEUTROPHILS % (MANUAL) 65 (42-76)
[2022-02-10] MEDS: DAKINS QUARTER STRENGTH (0.125%) 480 ML BOTTLE TOP SCH (10:04)
[2022-02-10] MEDS: Z GUARD REMEDY 4 OZ OINT TP PRN ×2 (10:04→10:06)
[2022-02-10] MEDS: Magnesium 1GM/D5W 100ML PREMIX 100 ML IV SCH ×4 (10:08→15:00)
[2022-02-10] MEDS: hydrALAZINE HCL IV 20 MG VIAL IV PRN ×2 (10:15→18:42)
[2022-02-10] MEDS: POTASSIUM CHLORIDE 20 MEQ TAB.PRT.SR PO SCH ×3 (10:25→15:10)
[2022-02-10] MEDS: Z GUARD REMEDY 4 OZ OINT TP SCH (10:51)
[2022-02-10 12:00] VITALS: BP 122/67
--- NOTE | 2022-02-10 12:00 | NUR ---
emptied ostomy bag 290 output
[2022-02-10 12:28] LABS: HEMOGLOBIN 8.5 g/dL (13.5-17.5)
[2022-02-10] MEDS: POTASSIUM CL. PREMIX PERIPHER. 50 ML IV SCH ×2 (14:37→18:47)
[2022-02-10] MEDS: SOD FERRIC GLUC 125 MG in IV NS 0.9% 100 ML IV SCH (14:52)
[2022-02-10 16:00] VITALS: BP 179/97
--- NOTE | 2022-02-10 19:30 | NUR ---
RN OPENING NOTE RECEIVED PATIENT IN BED, AWAKE, ALERT/ORIENTED X4, ABLE TO MAKE NEEDS KNOWN. CURRENTLY ON ROOM AIR, TOLERATING WELL, NO SOB OR ANY RESPIRATORY DISTRESS NOTED AT THIS TIME. IV ACCESS NOTED ON RUE PICC LINE WITH NS INFUSING AT 100ML/HR. NO SIGNS OF INFILTRATION NOTED. GRACE IS IN PLACE, DRAINING YELLOW URINE TO GRAVITY. PT NOTED TO HAVE CONTRACTED BILATERAL HANDS. ALL SAFETY MEASURES IN PLACE PER HOSPITAL PROTOCOL. HOB ELEVATED, BED LOCKED IN LOWEST POSITION, SIDE RAILS UP X 2. CALL LIGHT WITHIN REACH. WILL CONTINUE TO MONITOR THROUGHOUT SHIFT.
--- NOTE | 2022-02-10 19:30 | NUR ---
ASSIGNMENT AGENT closing note patient is alert and oriented x4. patient is on room air tolerating at 97%. patient is on tele monitor currently sinus rhythm/sinus tachycardia. all medications given and all PRN pain medications given. all needs met. no signs of pain or discomfort. patient has right upper arm picc line. picc line patent and intact. patient has Macedo catheter. yellow color draining to gravity. all safety measures in place. call light with reach. bed locked at lowest position. side rails up x2.
[2022-02-10 20:00] VITALS: BP 109/57
--- NOTE | 2022-02-10 20:05 | NUR ---
RN NOTE PT COMPLAINS OF PAIN IN HIS BILATERAL HANDS, BOTH OF WHICH ARE CONTRACTED. GAVE DILAUDID PER PT'S REQUEST. WILL REASSESS PT IN 30 MINUTES.
[2022-02-10] MEDS: MIDODRINE HCL (5MG) 5 MG TABLET PO SCH (22:06)
[2022-02-11] VITALS: BP 156/84
[2022-02-11] MEDS: HYDROMORPHONE 1 MG/1 ML DISP.SYRIN IV PRN ×5 (00:31→19:56)
[2022-02-11 04:00] VITALS: BP 154/83
[2022-02-11] MEDS: METOCLOPRAMIDE HCL 10 MG/2 ML VIAL IV SCH ×2 (04:06→13:33)
--- NOTE | 2022-02-11 06:38 | NUR ---
RN CLOSING NOTE NO SIGNIFICANT CHANGE THROUGHOUT THE NIGHT. ALL VS STABLE. TELE MONITOR SHOWS SR. PT ASKED FOR DILAUDID Q4H. ALL DUE MEDS GIVEN. PM CARE DONE. TURNED AN REPOSITIONED. SAFETY MEASURES IMPLEMENTED. WILL ENDORSE TO AM SHIFT NURSE FOR KULWINDER.
--- NOTE | 2022-02-11 07:19 | NUR ---
ALARM SIGNALER OPENING NOTE: RECEIVED PATIENT IN BED, AWAKE, ALERT/ORIENTED X4, ABLE TO MAKE NEEDS KNOWN. CURRENTLY ON ROOM AIR, TOLERATING WELL, NO SOB OR ANY RESPIRATORY DISTRESS NOTED AT THIS TIME. IV ACCESS NOTED ON ZHANNA PICC LINE WITH 3 LUMEN WITH NS INFUSING AT 100ML/HR. NO SIGNS OF INFILTRATION NOTED. GRACE IS IN PLACE, DRAINING YELLOW URINE TO GRAVITY. PT NOTED TO HAVE CONTRACTED BILATERAL HANDS. ALL SAFETY MEASURES IN PLACE PER HOSPITAL PROTOCOL. HOB ELEVATED, BED LOCKED IN LOWEST POSITION, SIDE RAILS UP X 2. CALL LIGHT WITHIN REACH. WILL CONTINUE TO MONITOR THROUGHOUT SHIFT.
[2022-02-11 08:00] VITALS: BP 162/80
[2022-02-11] MEDS: PANTOPRAZOLE 40 MG TABLET.DR PO SCH (08:34)
[2022-02-11 09:33] LABS: BASOPHILS # (AUTO) 0.1 K/uL (0.0-0.2); HEMATOCRIT 28 % (39-51); HEMOGLOBIN 8.9 g/dL (13.5-17.5); LYMPHOCYTES # (AUTO) 1.8 K/uL (0.8-4.8); LYMPHOCYTES % (AUTO) 26.7 % (20.0-44.0); MEAN CORPUSCULAR HGB CONC 32 g/dl (31.0-36.0); MEAN CORPUSCULAR VOLUME 72 fL (80-96); MONOCYTES # (AUTO) 0.5 K/uL (0.1-1.30); MONOCYTES % (AUTO) 8.1 % (2.0-12.0); NEUTROPHILS % (AUTO) 61.2 % (43.0-81.0); PLATELET COUNT (AUTO) 230 K/uL (150-450); RED BLOOD CELL COUNT(AUTO) 3.92 MIL/uL (4.5-6.0); WHITE BLOOD COUNT (AUTO) 6.6 K/uL (4.3-11.0)
[2022-02-11 09:50] LABS: CALCIUM, SERUM 8.8 mg/dL (8.5-10.1); CREATININE 0.6 mg/dL (0.6-1.3); MAGNESIUM 2.1 mg/dL (1.8-2.4); POTASSIUM 4.3 mmol/L (3.5-5.1)
[2022-02-11] MEDS: MEROPENEM 500 MG in IV NS 0.9% 100 ML IV SCH ×2 (09:50→18:34)
[2022-02-11] MEDS: NICOTINE PATCH (21MG) 21 MG PATCH.TD24 TD SCH (09:50)
[2022-02-11] MEDS: HEPARIN SODIUM, PORCINE 5000 UNITS/1 ML VIAL SQ SCH (09:51)
[2022-02-11] MEDS: MULTIVIT W/MINERALS 1 TAB TABLET PO SCH (09:52)
[2022-02-11] MEDS: GABAPENTIN 300 MG CAPSULE PO SCH ×2 (09:52→17:44)
[2022-02-11] MEDS: DOCUSATE SODIUM 250 MG CAPSULE PO SCH ×2 (09:52→17:44)
[2022-02-11] MEDS: ASCORBIC ACID 500 MG TABLET PO SCH (09:53)
[2022-02-11] MEDS: OXYBUTYNIN CHLORIDE 5 MG TABLET PO SCH (09:53)
[2022-02-11] MEDS: DULOXETINE HCL 30 MG CAPSULE.DR PO SCH (09:53)
[2022-02-11] MEDS: CHOLECALCIFEROL 1,000 UNIT TABLET (VIT D3) PO SCH (09:54)
[2022-02-11] MEDS: ZINC SULFATE 220 MG CAPSULE PO SCH (09:54)
[2022-02-11] MEDS: DAKINS QUARTER STRENGTH (0.125%) 480 ML BOTTLE TOP SCH (09:56)
[2022-02-11] MEDS: Z GUARD REMEDY 4 OZ OINT TP SCH (09:57)
[2022-02-11 12:00] VITALS: BP 160/100
[2022-02-11] MEDS ORDERED: FERR325T23 PO (12:13)
[2022-02-11] MEDS ORDERED: MERO500V23 IV (12:13)
[2022-02-11] MEDS: IV NS 0.9% 1,000 ML IV PRN (13:58)
[2022-02-11] MEDS: SOD FERRIC GLUC 125 MG in IV NS 0.9% 100 ML IV SCH (14:07)
[2022-02-11 16:00] VITALS: BP 152/100
--- NOTE | 2022-02-11 18:38 | NUR ---
RN NOTES: SPOKE TO MISTI GARBER METER INSPECTOR PER [place] PT IS LEAVING AROUND 7:30 PM IF OK TO GIVE IV MEROPENEM BEFORE DISCHARGE HE SAID OK, IV MEROPENEM GIVEN
--- NOTE | 2022-02-11 19:10 | NUR ---
RN NOTES RECEIVED REPORT FROM MORNING RN. PATIENT IS IN BED A/O X4 ABLE TO MAKE NEEDS KNOWN. ON ROOM AIR SATING 99%. NO SOD NO DISTRESS NOTED AT THIS TIME. WITH GRACE CATHETER CONNECTED TO URINE BAG DRAINING YELLOWISH URINE OUTPUT. WITH ZHANNA P9ICC LINE PATENT FLUSHES WELL. ON IVF NS@ 100 CC/HR. ALL SAFETY MEASURES IN PLACE AT ALL TIME4S. HOB ELEVATED. CALL LIGHT WITHIN REACH. PATIENT IS FOR D/C TO [facility].
--- NOTE | 2022-02-11 19:26 | NUR ---
Rn closing notes: RN OPENING NOTES: PATIENT IN BED, AWAKE, ALERT/ORIENTED X4, ABLE TO MAKE NEEDS KNOWN. CURRENTLY ON ROOM AIR, TOLERATING WELL, NO SOB OR ANY RESPIRATORY DISTRESS NOTED AT THIS TIME. IV ACCESS NOTED ON RUE PICC LINE WITH NS INFUSING AT 100ML/HR. NO SIGNS OF INFILTRATION NOTED. GRACE IS IN PLACE, DRAINING YELLOW URINE TO GRAVITY. PT NOTED TO HAVE CONTRACTED BILATERAL HANDS. WILL GET DISCHARGE PER ENDOSCOPY RN AT 7:30 PM ENDORSE TO NIGHT RN
[2022-02-11 20:00] VITALS: BP 135/90
--- NOTE | 2022-02-11 20:10 | NUR ---
RN NOTES PATIENT DISCHARGE TO [facility]. REPORT GIVE. ALL MEDS GIVEN. BELONGING CHECKED AND ACCOUNTED TO PATIENT. PICKED UP BY [facility]. PAPER WORKS AND REPORT GIVEN TO EMT. SAFETY TRANSFERRED TO [facility]. LEFT AT THE UNIT @2014
== END 2022-02-11 20:32 | DRG 720 ==
LOC: ER 01:41 → TRANSITION 07:21 → ICU 07:46 → TELE1 02-08 11:06
PROVIDERS: ADMIT Nurse Practitioner Family; ATTEND Nurse Practitioner Acute Care
PROC: 02HV33Z Insertion of Infusion Device into Superior Vena Cava, Percutaneous Approach (ICD-10-PCS; principal; 2022-02-05)
PROC: B548ZZA Ultrasonography of Superior Vena Cava, Guidance (ICD-10-PCS; 2022-02-05)
DX: A41.9 Sepsis, unspecified organism (principal); N17.0 Acute kidney failure with tubular necrosis; R65.21 Severe sepsis with septic shock; G82.50 Quadriplegia, unspecified; D84.9 Immunodeficiency, unspecified; L89.154 Pressure ulcer of sacral region, stage 4; C85.90 Non-Hodgkin lymphoma, unspecified, unspecified site; C83.30 Diffuse large B-cell lymphoma, unspecified site; K56.7 Ileus, unspecified; E87.2 Acidosis; E87.1 Hypo-osmolality and hyponatremia; E87.5 Hyperkalemia; N12 Tubulo-interstitial nephritis, not specified as acute or chronic; R65.20 Severe sepsis without septic shock; Z20.822 Contact with and (suspected) exposure to COVID-19; J45.909 Unspecified asthma, uncomplicated; Z87.81 Personal history of (healed) traumatic fracture; F41.9 Anxiety disorder, unspecified; Z86.718 Personal history of other venous thrombosis and embolism; Z79.51 Long term (current) use of inhaled steroids; Z79.01 Long term (current) use of anticoagulants; Z88.0 Allergy status to penicillin; Z92.21 Personal history of antineoplastic chemotherapy; Z98.1 Arthrodesis status; N13.6 Pyonephrosis; K52.89 Other specified noninfective gastroenteritis and colitis; Z79.899 Other long term (current) drug therapy; Z80.1 Family history of malignant neoplasm of trachea, bronchus and lung; N10 Acute pyelonephritis; R73.9 Hyperglycemia, unspecified; B96.4 Proteus (mirabilis) (morganii) as the cause of diseases classified elsewhere; F32.A Depression, unspecified; K59.00 Constipation, unspecified; N39.0 Urinary tract infection, site not specified; K92.2 Gastrointestinal hemorrhage, unspecified; Z16.24 Resistance to multiple antibiotics; F17.210 Nicotine dependence, cigarettes, uncomplicated; E87.6 Hypokalemia; E86.0 Dehydration; D50.9 Iron deficiency anemia, unspecified
CPT/HCPCS: 36415; 71045-TC; 76770-TC; 78582; 80048-TC; 80053-TC; 80076-TC; 81001; 82272-TC; 82533; 82570-TC; 82607-TC; 82728-TC; 82784; 82962-TC; 83540-TC; 83605-TC; 83690-TC; 83735-TC; 84100-TC; 84132-TC; 84155; 84165; 84300-TC; 84443-TC; 85025-TC; 85027-TC; 85396; 85730-TC; 86334; 87040-TC; 87086-TC; 87186-TC; 93307-TC; A4216; A4217; A6403; A9540; A9567; C9113; C9803; G0378; J0360; J1170; J1644; J1815; J1940; J1956; J2185; J2270; J2370; J2405; J2765; J2916; J3475; J3480; J3490; J7030; J7050